=== PATIENT | female | born 1995 | race Caucasian/White ===

== ENCOUNTER 2020-01-31 15:40 | Emergency (ER) | payer OTHER, SELFPAY ==
[~2020-01-31] VITALS: Ht 154.9 cm; Wt 64.4 kg
[2020-01-31 16:30] VITALS: BP 120/72
--- NOTE | 2020-01-31 16:44 | NUR ---
COVID SWAB DONE.
--- NOTE | 2020-01-31 16:46 | NUR ---
C/O 6 MONTHS , COUGH, SORE THROAT , LOSS OF TASTE/SMELL X 1 WEEK. LMP 07/25/19
[2020-01-31 17:26] VITALS: BP 120/72
== END 2020-01-31 17:26 | disposition home or self-care (01) ==
LOC: EEVIPCON 15:40 → MED 15:40
DX: O26.891 Other specified pregnancy related conditions, first trimester (principal); Z20.828 Contact with and (suspected) exposure to other viral communicable diseases; B34.9 Viral infection, unspecified; Z3A.01 Less than 8 weeks gestation of pregnancy
CPT/HCPCS: 99283; U0003